=== PATIENT | female | born 1990 | race Caucasian/White ===

== ENCOUNTER 2020-03-03 05:17 | Inpatient (IN) ==
[2020-03-03] MEDS ORDERED: OXYTOCIN 30 UNITS/500 ML BAG IV PRN ×2 (05:58→11:20)
[2020-03-03] MEDS: LACTATED RINGER'S 1,000 ML IV PRN ×2 (06:10→07:04)
[2020-03-03 06:16] LABS: Hemoglobin 12.2 g/dL (12.0-16.0); Mean Corpuscular Hemoglobin 30.3 pg (25-34); Mean Corpuscular Hgb Conc 33.9 g/dL (32-36); Mean Corpuscular Volume 89.3 fL (80-100); Mean Platelet Volume 9.9 fL (7.4-10.4); Platelet Count 175 K/uL (130-400); RDW Standard Deviation 45.8 fL (36.4-46.3); Red Blood Count 4.03 M/uL (4.2-5.4); White Blood Count 18.58 K/uL (4.8-10.8)
--- NOTE | 2020-03-03 06:16 | History & Physical Report ---
Date of Service March 03, 2020 Assessment & Plan (1) Active labor at term: 29-year-old -0-1-1 at 40 weeks of gestation presenting in active labor and desires for epidural. Vital signs stable afebrile GBS negative Coronavirus negative heart rate reassuring Plan to admit, monitor, IV fluids, labs and epidural for pain. Anticipate spontaneous vaginal delivery (2) Gestational diabetes mellitus (GDM): History of Present Illness Primary Care Provider: Min Kurtz Patient is a 29-year-old -0-1-1 at 40 weeks of gestation who has been feeling contractions since 2 AM. No leakage of fluid or vaginal bleeding. She reports good movements. She presented to labor and delivery in active labor and asking for epidural. Her cervix is 6 to 7 cm dilated, 70% effaced and head is at -1 station. heart rate is category 1. Her is uncomplicated except GDMA1, diet-controlled gestational diabetes. GBS is negative Coronavirus is negative. Allergies Allergy/AdvReac Type Severity Reaction Status Date / Time nickel Allergy Intermediate itchy rash Verified 03/03/20 05:37 No Known Drug Allergies Allergy Unknown Verified 03/03/20 05:37 cotton AdvReac Mild Redness of Uncoded 01/03/19 09:37 Skin Home Medications Medication Instructions Recorded Confirmed Type 400 mcg PO DAILY 01/01/19 03/03/20 History ferrous sulfate 27 mg PO DAILY 03/03/20 03/03/20 History sertraline [Zoloft] 50 mg PO DAILY 03/03/20 03/03/20 History Patient History Medical History (Updated 03/03/20 @ 06:16 by Ирина Liu MD) Anxiety had saw [facility] to rule out cardiac issues Mar/Apr 2018. Discharged from their care with anxiety dx. currently taking zoloft 50mcg Gestational diabetes diet controlled IBS (irritable bowel syndrome) Surgical History H/O wisdom tooth extraction History of cholecystectomy 2016 History of colonoscopy History of esophagogastroduodenoscopy (EGD) History of myringotomy bilateral Family History Grandmother (Paternal) FHx: breast cancer Father Family history of diabetes mellitus Social History Smoking Status: Never smoker Second Hand Exposure: No; Hx Alcohol Use: No Hx Substance Use: No Preferred Language: Malian Communication Ability: Effective Compressor Repairer Required: No Beliefs That Will Affect Care: None marital status: Current Living Situation: Spouse Current Living Situation Comment: lives with and child Other Information That Helps Us Care for You: No Feels Safe at Home: Yes Safety Concerns: Feels Safe At This Time Assistive Devices: Glasses OB History FT in [place] [employer] History No h/o STD's Review of Systems All systems reviewed & are unremarkable except as noted in HPI & below Physical Exam Constitutional: WD/WN, vitals as above well developed, well nourished and + acute distress (with ctxs only) Gastrointestinal (Abdomen): normal bowel sounds, soft, nontender, no hepatosplenomegaly (gravid, marco antonio 7-8 lb) Genitourinary: normal external appearance Manual OB Exam: + cervical dilation 6 cm, + cervical effacement 70% and + station -1 OB Exam Monitor Tracing: + external uterine monitor used and + category I Results & Data ([facility]) Vital Signs (Past 12 Hours) Vital Signs Pulse Resp BP 03/03/20 05:41 18 03/03/20 05:32 103 H 111/76 (1) Gestational diabetes mellitus (GDM) Gestational diabetes mellitus control: diet-controlled Trimester: third trimester Qualified Code(s): O24.410 - Gestational diabetes mellitus in , diet controlled
[2020-03-03] MEDS ORDERED: ePHEDrine sulfate 50 MG/ML AMP ONE (06:27)
[2020-03-03] MEDS ORDERED: BUPIVACAINE 0.25% 30 ML VIAL ONE (06:27)
[2020-03-03] MEDS ORDERED: SODIUM CHLORIDE 0.9% INJ 10 ML VIAL ONE (06:27)
[2020-03-03] MEDS ORDERED: fentaNYL citrate 100 MCG/2 ML VIAL ONE (06:28)
[2020-03-03] MEDS ORDERED: fentaNYL 2MCG/ML ROPIVACAINE 1.25MG/ML 100 ML BAG EPI ONE (06:28)
--- NOTE | 2020-03-03 07:09 | Anesthesiology Consultation ---
Date of Service March 03, 2020 Assessment & Plan Chart Review Chart Review: Acceptable Risk for Surgery and Patient NOT seen in Pre Admission Testing Consults Requested none ASA ASA2 Proposed Anesthesia Anesthesia Type: Labor Epidural and CSE Risk / Benefits Reviewed With: PT / POA / Parent / Guardian, Accepts Plan and Informed Consent Obtained Additional Comments: covid neg. History Height/Weight Height: 5 ft 4 in Weight: 77.564 kg Allergies Allergy/AdvReac Type Severity Reaction Status Date / Time nickel Allergy Intermediate itchy rash Verified 03/03/20 05:37 No Known Drug Allergies Allergy Unknown Verified 03/03/20 05:37 cotton AdvReac Mild Redness of Uncoded 01/03/19 09:37 Skin Medications Home Medications Medication Instructions Recorded Confirmed Last Taken 400 mcg PO DAILY 01/01/19 03/03/20 03/02/20 ferrous sulfate 27 mg PO DAILY 03/03/20 03/03/20 03/02/20 sertraline [Zoloft] 50 mg PO DAILY 03/03/20 03/03/20 03/02/20 08:00 Active Medications Generic Name Dose Route Start Last Admin Trade Name Freq PRN Reason Stop Dose Admin Lactated Ringer's 1,000 mls @ 125 mls/hr 03/03/20 05:58 03/03/20 07:04 Lr IV 03/05/20 05:57 999 mls/hr .Q8H PRN Administration L&D Protocol Protocol NPO Date Last Intake of Fluids: 03/03/20 Time Last Intake of Fluids: 05:00 Date Last Intake of Solids: 03/02/20 Time Last Intake of Solids: 18:00 Past Medical History Medical History Anxiety had saw [facility] to rule out cardiac issues Apr 2018. Discharged from their care with anxiety dx. currently taking zoloft 50mcg Gestational diabetes diet controlled IBS (irritable bowel syndrome) Exercise / Class Metabolic Activity II 4-5 Yardwork/Stairs/Walk up hill Past Family History Family History Grandmother (Paternal) FHx: breast cancer Father Family history of diabetes mellitus Past Surgical History Surgical History H/O wisdom tooth extraction History of cholecystectomy 2017 History of colonoscopy History of esophagogastroduodenoscopy (EGD) History of myringotomy bilateral Past Anesthesia History No Hx of Anesthesia Complications and No Family Hx of Anesthesia Complications History of PONV No Hx of PONV and No Hx of Motion Sickness Social History Smoking Status: Never smoker Hx Alcohol Use: No Hx Substance Use: No substance use type: does not use Physical Exam Vital Signs Last Vital Signs Temp 36.7 C 03/03/20 06:55 Pulse 101 H 03/03/20 07:04 Resp 20 03/03/20 06:55 BP 145/80 H 03/03/20 06:55 Pulse Ox 98 03/03/20 07:04 Constitutional + obese ENMT Mouth: no dentition abnormality Thyromental Distance: < 3.5 Finger Breadths Mallampati Class: II Neck normal visual inspection and trachea midline; neck extension not limited Respiratory normal respiratory effort Auscultation: lungs clear to auscultation bilaterally Cardiovascular Rate/Rhythm: regular rate and regular rhythm Heart Sounds: no murmur Vessels: no carotid bruit Musculoskeletal Spine: lumbar spine normal to inspection; normal cervical ROM Neurologic moves all extremities Motor/Sensory: no sensory deficit Psychiatric Orientation: alert and oriented x 3 Testing Laboratory Results 03/03/20 06:04
[2020-03-03] MEDS ORDERED: ONDANSETRON INJ 2 MG/ML 2 ML VIAL IV PRN (07:30)
[2020-03-03] MEDS ORDERED: fentaNYL 2MCG/ML ROPIVACAINE 1.25MG/ML 100 ML BAG EPI PRN (07:30)
[2020-03-03] MEDS ORDERED: ePHEDrine sulfate 50 MG/ML AMP IV PRN (07:30)
[2020-03-03] MEDS ORDERED: diphenhydrAMINE 50 MG/ML VIAL IV PRN (07:30)
[2020-03-03] MEDS ORDERED: PROMETHAZINE HCL 25 MG in SODIUM CHLORIDE 0.9% 50 ML IV PRN (07:30)
[2020-03-03] MEDS ORDERED: NALOXONE HCL 0.4 MG/1 ML VIAL/CARP IV PRN (07:30)
[2020-03-03] MEDS ORDERED: NALOXONE HCL 1 MG in SODIUM CHLORIDE 0.9% 1000ML 1,000 ML IV PRN (07:30)
--- NOTE | 2020-03-03 07:39 | Obstetrical Progress Note ---
Date of Service March 03, 2020 Assessment & Plan Admission and Anticipated Discharge Date Admission Date: March 03, 2020 Physical Exam Genitourinary: Manual OB Exam: + cervical dilation 8 cm, + cervical effacement 100%, + station -1 and + amniotic fluid clear OB Exam Monitor Tracing: + external FHT monitor used, + external uterine monitor used, + category I and + normal FHT variability AROM with amni-hook clear fluid Results & Data ([facility]) Vital Signs (Past 12 Hours) Vital Signs Temp Pulse Resp BP Pulse Ox 03/03/20 07:35 95 H 106/68 03/03/20 07:34 98 H 99 03/03/20 07:33 105 H 113/67 03/03/20 07:31 105 H 107/72 03/03/20 07:30 20 03/03/20 07:29 91 H 107/70 98 03/03/20 07:27 96 H 20 116/72 03/03/20 07:25 103 H 118/78 03/03/20 07:24 101 H 96 03/03/20 07:23 89 20 117/76 03/03/20 07:19 102 H 98 03/03/20 07:14 112 H 98 03/03/20 07:09 104 H 99 03/03/20 07:04 101 H 98 03/03/20 06:59 100 H 96 03/03/20 06:55 36.7 C 98 H 20 145/80 H 03/03/20 06:54 97 H 94 03/03/20 06:49 110 H 99 03/03/20 06:44 101 H 96 03/03/20 06:39 96 H 96 03/03/20 06:34 116 H 96 03/03/20 05:41 18 03/03/20 05:32 36.8 C 103 H 18 111/76
--- NOTE | 2020-03-03 11:14 | Delivery Summary ---
Vaginal Delivery Summary Date of Service March 03, 2020 Vaginal Delivery Summary Delivery Note live female over intact perineum with delayed cord clamping. Apgars 8/9 weight 8-3. Cord blood obtained followed by spontaneous delivery of intact placenta. No tears. EBL 200 ml. Final sponge and instrument count are correct. Mom and baby stable.
[2020-03-03] MEDS ORDERED: IBUPROFEN 600 MG TAB PO PRN (11:20)
[2020-03-03] MEDS ORDERED: ACETAMINOPHEN 325 MG TAB PO PRN (11:20)
[2020-03-03] MEDS ORDERED: BENZOCAINE 20% AER SPR 82.5 GM CAN EXT PRN (11:20)
[2020-03-03] MEDS ORDERED: HYDROCORTISONE ACETATE 25 MG SUPP PR PRN (11:20)
[2020-03-03] MEDS ORDERED: DIPHTHERIA/TETANUS/PERTUSSIS 0.5 ML SYR/VIAL IM ONE (11:20)
[2020-03-03] MEDS ORDERED: SUPERCREAM 0.870% 15 GM JAR EXT PRN (11:20)
[2020-03-03] MEDS ORDERED: bisacodyL 10 MG SUPP PR PRN (11:20)
--- NOTE | 2020-03-03 11:41 | Anesthesia Procedure Note ---
Date of Service March 03, 2020 Anesthesia Post Epidural Note Vital Signs Vital Signs: Temp Pulse Resp BP Pulse Ox 37.5 C 83 18 128/69 96 03/03/20 09:59 03/03/20 11:33 03/03/20 11:18 03/03/20 11:33 03/03/20 10:44 Pain Intensity Abdomen: Pain Intensity: 0 Notes Mental Status: alert / awake / arousable Nausea / Vomiting: adequately controlled Pain: adequately controlled Airway Patency, RR, SpO2: stable & adequate BP & HR: stable & adequate Hydration State: stable & adequate Neuraxial Anesthesia: was administered and sensory block is resolving Anesthetic Complications: no major complications apparent Epidural: Removed without complications and With tip intact
[2020-03-03] MEDS: DOCUSATE SODIUM 100 MG CAP PO SCH (23:10)
[2020-03-04 06:03] LABS: Hematocrit (blood only) 30.9 % (37-47); Hemoglobin 10.3 g/dL (12.0-16.0); Mean Corpuscular Hemoglobin 30.3 pg (25-34); Mean Corpuscular Hgb Conc 33.3 g/dL (32-36); Mean Corpuscular Volume 90.9 fL (80-100); Platelet Count 155 K/uL (130-400); RDW Coefficient of Variation 14.3 % (11.5-14.5); RDW Standard Deviation 47.2 fL (36.4-46.3); White Blood Count 12.48 K/uL (4.8-10.8)
[2020-03-04] MEDS ORDERED: PRENATAL VITAMIN 1 TAB PO SCH (08:00)
[2020-03-04] MEDS: DOCUSATE SODIUM 100 MG CAP PO SCH (08:22)
--- NOTE | 2020-03-04 08:23 | Obstetrical Progress Note ---
Date of Service March 04, 2020 Assessment & Plan Admission and Anticipated Discharge Date Admission Date: March 03, 2020 Subjective Patient is seen and examined. She feels well, no complaints. Desires d/c today Ambulating without dizziness Voiding without difficulty Tolerating regular diet with out N&V Bleeding is minimal No fever/ chills/ CP/ SOB/ N&V/ Leg pain Breast feeding without problems Lab Results 03/03/20 03/04/20 Range/Units 06:04 05:49 WBC 18.58 H 12.48 H (4.8-10.8) K/uL RBC 4.03 L 3.40 L (4.2-5.4) M/uL Hgb 12.2 10.3 L (12.0-16.0) g/dL Hct 36.0 L 30.9 L (37-47) % MCV 89.3 90.9 (80-100) fL MCH 30.3 30.3 (25-34) pg MCHC 33.9 33.3 (32-36) g/dL RDW Std Deviation 45.8 47.2 H (36.4-46.3) fL RDW Coeff of Anny 14.0 14.3 (11.5-14.5) % Plt Count 175 155 (130-400) K/uL MPV 9.9 10.0 (7.4-10.4) fL 03/04/20 Range/Units 05:49 WBC 12.48 H (4.8-10.8) K/uL RBC 3.40 L (4.2-5.4) M/uL Hgb 10.3 L (12.0-16.0) g/dL Hct 30.9 L (37-47) % MCV 90.9 (80-100) fL MCH 30.3 (25-34) pg MCHC 33.3 (32-36) g/dL RDW Std Deviation 47.2 H (36.4-46.3) fL RDW Coeff of Anny 14.3 (11.5-14.5) % Plt Count 155 (130-400) K/uL MPV 10.0 (7.4-10.4) fL PE: General: Alert, orientedx3, NAD Abd: soft, NT, fundus firm, below Umbilicus Perineum intact, Lochia rubra minimal Ext; NT, no edema AP: 29 yo s/p , ppd# 1 VSS Afebrile doing well Continue routine care All questions were answered Discussed when to call D/C home , f/u in office Results & Data ([facility]) Vital Signs (Past 12 Hours) Vital Signs Temp Pulse Pulse Resp BP Pulse Ox 03/04/20 04:49 36.6 C 76 18 110/71 99 03/04/20 00:00 36.6 C 76 18 110/71 99
[2020-03-04] MEDS ORDERED: FERROUS SULFATE 325 MG TAB PO SCH (09:00)
[2020-03-04] MEDS ORDERED: POLYETHYLENE (MIRALAX) 17 GM PACK PO SCH (09:00)
[2020-03-04] MEDS ORDERED: NON-FORMULARY MEDICATION (Prenatal No.144-Folic Acid [Prenatal] 400 mcg Tablet,Chewable) PO SCH (09:00)
[2020-03-04] MEDS ORDERED: SERTRALINE HCL 50 MG TABLET PO SCH (09:00)
[2020-03-04] MEDS ORDERED: bisacodyL 5 MG TABEC PO SCH (20:00)
== END 2020-03-04 12:00 | disposition home or self-care (01) | DRG 807 ==
LOC: OPB 05:17 → 4S1 05:24 → 4S2 14:50